=== PATIENT | male | born 1945 | race African-American/Black ===

== ENCOUNTER 2017-01-24 10:30 | Emergency (ER) | payer OTHER ==
[~2017-01-24] VITALS: Ht 185.4 cm; Wt 104.0 kg
[~2017-01-24 10:30] MED LIST: DIPHENHYDRAMINE50 MG PO; HALDOL DEC50 MG/1 ML IM; HALOPERIDOL5 MG PO; ZESTRIL,PRINIVI20 MG PO; ZOCOR20 MG PO
[2017-01-24 11:31] LABS: EOSINOPHIL (%) 0.3 % (0-5); HEMATOCRIT 32.1 % (38.0-50.0); IMMATURE GRANULOCYTE (%) 0.3 % (0.0-0.7); INSTRUMENT ABS NEUTROPHIL CT 4.8 K/uL; LYMPHOCYTE COUNT 1.3 K/uL (1.0-2.8); MCH 29.2 PG (29.0-34.0); MCV 88.4 FL (86-99); MONOCYTE (%) 13.9 % (3-12); NEUTROPHIL (%) 67.7 % (45-76); NEUTROPHIL COUNT 4.8 K/uL (1.8-6.4); PLATELET COUNT 233 K/uL (156-360); RBC DIS.WIDTH-CV 13.2 % (11.8-14.6); RBC DIS.WIDTH-SD 42.9 % (39-53); RED BLOOD COUNT 3.63 M/uL (4.00-5.50); WHITE BLOOD COUNT 7.1 K/uL (4.1-10.2)
[2017-01-24 11:36] LABS: INTER. NORMALIZED RATIO 1.3
[2017-01-24 11:39] LABS: PTT 26.4 SEC (25-37)
[2017-01-24 11:43] LABS: CHLORIDE 102 mEq/L (99-109); POTASSIUM 4.4 mEq/L (3.7-5.4); SODIUM 131 mEq/L (136-147)
[2017-01-24 11:45] LABS: GLUCOSE 111 mg/dL (70-99)
[2017-01-24 11:46] LABS: ANION GAP 8 MEQ/L (2-14)
[2017-01-24 11:47] LABS: TOTAL BILIRUBIN 0.9 mg/dL (0.0-1.0)
[2017-01-24 11:48] LABS: ALKALINE PHOSPHATASE 75 IU/L (3-129)
[2017-01-24 11:49] LABS: GFR ESTIMATE (CALCULATED) 41 mL/min/
[2017-01-24 11:50] LABS: DIRECT BILIRUBIN 0.4 mg/dL (0.0-0.3); UREA NITROGEN (BUN) 30 mg/dL (9-23)
[2017-01-24 11:51] LABS: TROP-I INTERPRETATION NEGATIVE; TROPONIN-I 0.02 ng/mL (0.0-0.30)
[2017-01-24 11:52] LABS: LIPASE 13 U/L (1.0-51.0)
[2017-01-24 13:20] LABS: ADD MIUA? YES; BILIRUBIN NEGATIVE; BLOOD SMALL; COLOR YELLOW ((YELLOW)); GLUCOSE (STRIP) NEGATIVE; KETONES NEGATIVE; LEUKOCYTES LARGE; NITRITE NEGATIVE; PROTEIN (STRIP) 30; UROBILINOGEN 0.2 MG/DL (0.2-1.0)
[2017-01-24 13:55] LABS: BACTERIA RARE /HPF; EPITHELIAL CELLS NONE SEEN /HPF; HYALINE CASTS 0-5 /LPF; MUCUS NONE SEEN /LPF; RED BLOOD CELLS 0-5 /HPF (0-5); UCUL ADDED? YES; WHITE BLOOD CELLS TNTC /HPF (0-5); WHITE BLOOD CELLS CLUMP FEW /HPF (0-5)
[2017-01-24] MEDS ORDERED: BACTRIM,SEPT1 TABLET PO (17:16)
[2017-01-24 17:55] VITALS: BP 139/102
== END 2017-01-24 17:57 ==
LOC: EME 10:30
PROVIDERS: Emergency Medicine
DX: N39.0 Urinary tract infection, site not specified (principal); N28.9 Disorder of kidney and ureter, unspecified; I10 Essential (primary) hypertension; F20.9 Schizophrenia, unspecified; Z88.0 Allergy status to penicillin; Z87.891 Personal history of nicotine dependence
CPT/HCPCS: 71010; 74176; 80048; 80076; 81003; 83605; 83690; 83880; 84484; 85025; 85610; 85730; 87086; 99281; 99285; J0696; J7030; J7050

== ENCOUNTER 2017-08-16 11:44 | Emergency (ER) | payer OTHER ==
[~2017-08-16] VITALS: Ht 190.5 cm; Wt 103.6 kg
[~2017-08-16 11:44] MED LIST changes: +BACTRIM,SEPT1 TABLET PO
[2017-08-16 11:56] LABS: BASOPHIL (%) 0.1 % (0-1); EOSINOPHIL (%) 0.2 % (0-5); HEMATOCRIT 33.1 % (38.0-50.0); HEMOGLOBIN 11.1 G/DL (12.5-16.6); IMMATURE GRANULOCYTE (%) 3.5 % (0.0-0.7); LYMPHOCYTE (%) 6.6 % (15-42); LYMPHOCYTE COUNT 1.1 K/uL (1.0-2.8); MCH 29.8 PG (29.0-34.0); MCHC 33.5 G/DL (30.0-36.0); MCV 88.7 FL (86-99); MONOCYTE (%) 6.6 % (3-12); MONOCYTE COUNT 1.1 K/uL (0-0.8); NEUTROPHIL COUNT 14.2 K/uL (1.8-6.4); PLATELET COUNT 144 K/uL (156-360); RBC DIS.WIDTH-CV 13.2 % (11.8-14.6); RBC DIS.WIDTH-SD 43.3 % (39-53); RED BLOOD COUNT 3.73 M/uL (4.00-5.50); WHITE BLOOD COUNT 17.1 K/uL (4.1-10.2)
[2017-08-16 12:01] LABS: INTER. NORMALIZED RATIO 1.2
[2017-08-16 12:04] LABS: PTT 24.9 SEC (25-37)
[2017-08-16 12:08] LABS: AMYLASE 38 IU/L (1-118); CHLORIDE 104 mEq/L (99-109); SODIUM 134 mEq/L (136-147)
[2017-08-16 12:10] LABS: GLUCOSE 136 mg/dL (70-99)
[2017-08-16 12:13] LABS: SERUM ETHYL ALCOHOL < 10 mg/dL
[2017-08-16 12:14] LABS: CREATININE 2.9 mg/dL (0.6-1.3); GFR ESTIMATE (CALCULATED) 28 mL/min/ (58.99-99999)
[2017-08-16 12:15] LABS: UREA NITROGEN (BUN) 49 mg/dL (9-23)
[2017-08-16 12:17] LABS: LIPASE 10 U/L (1.0-51.0); TROP-I INTERPRETATION NEGATIVE; TROPONIN-I 0.03 ng/mL (0.0-0.30)
[2017-08-16] MEDS ORDERED: COGENTIN1 MG PO (16:44)
[2017-08-16] MEDS ORDERED: ATENOLOL25 MG PO (16:44)
[2017-08-16] MEDS ORDERED: ASPIR 8181 M1 PO (16:45)
[2017-08-16] MEDS ORDERED: LASIX40 MG PO (16:45)
[2017-08-16] MEDS ORDERED: COZAAR50 MG PO (16:45)
[2017-08-16] MEDS ORDERED: ALDACTONE25 MG PO (16:46)
[2017-08-16] MEDS ORDERED: HYTRIN1 MG PO (16:46)
[2017-08-16 18:08] VITALS: BP 112/76
== END 2017-08-16 18:38 | disposition short-term general hospital (02) ==
LOC: EME 11:44
PROVIDERS: Emergency Medicine
DX: A41.9 Sepsis, unspecified organism (principal); L03.116 Cellulitis of left lower limb; E86.0 Dehydration; I13.0 Hypertensive heart and chronic kidney disease with heart failure and stage 1 through stage 4 chronic kidney disease, or unspecified chronic kidney disease; I50.9 Heart failure, unspecified; N18.9 Chronic kidney disease, unspecified; R60.0 Localized edema; Z88.0 Allergy status to penicillin; Z87.891 Personal history of nicotine dependence
CPT/HCPCS: 70450; 80047; 80048; 81003; 82150; 83605; 83690; 84484; 85025; 85610; 85730; 86850; 86900; 86901; 87040; 93005; 93971; 99281; 99285; G0480; J0692; J3370

== ENCOUNTER 2017-10-17 07:08 | Inpatient (IN) | payer OTHER ==
[~2017-10-17] VITALS: Ht 185.4 cm; Wt 99.3 kg
[~2017-10-17 07:08] MED LIST changes: +ALDACTONE25 MG PO; +ASPIR 8181 M1 PO; +ATENOLOL25 MG PO; +COGENTIN1 MG PO; +COZAAR50 MG PO; +HYTRIN1 MG PO; +LASIX40 MG PO
[2017-10-17 07:59] LABS: HEMATOCRIT 30.1 % (38.0-50.0); HEMOGLOBIN 9.8 G/DL (12.5-16.6); MCH 29.3 PG (29.0-34.0); MCHC 32.6 G/DL (30.0-36.0); MCV 90.1 FL (86-99); PLATELET COUNT 272 K/uL (156-360); RBC DIS.WIDTH-CV 14.2 % (11.8-14.6); RBC DIS.WIDTH-SD 46.7 % (39-53); RED BLOOD COUNT 3.34 M/uL (4.00-5.50)
[2017-10-17 08:30] LABS: CHLORIDE 103 MEQ/L (99-109); CREATININE 1.7 MG/DL (0.6-1.3); GFR ESTIMATE (CALCULATED) 52 mL/min/ (58.99-99999); GLUCOSE 81 mg/dL (70-99); POTASSIUM 5.1 MEQ/L (3.7-5.4); SODIUM 132 MEQ/L (136-147); UREA NITROGEN (BUN) 40 mg/dL (9-23)
[2017-10-17 08:37] LABS: TROP-I INTERPRETATION NEGATIVE; TROPONIN-I < 0.01 ng/mL (0.0-0.30)
[2017-10-17 11:02] VITALS: BP 135/89
[2017-10-17 12:37] VITALS: BP 110/79
[2017-10-17] MEDS ORDERED: HALDOL2 MG PO ×2 (13:30)
[2017-10-17] MEDS ORDERED: ZANTAC150 MG PO (13:30)
[2017-10-17] MEDS ORDERED: TENORMIN50 MG PO (13:31)
[2017-10-17] MEDS ORDERED: ERGOCALCIF50000 UNIT PO (13:32)
[2017-10-17] MEDS ORDERED: LOTRIMIN AF24 GM TP (13:32)
[2017-10-17] MEDS ORDERED: FLOMAX0.4 MG PO (13:33)
[2017-10-17] MEDS ORDERED: TYLENOL REGULA325 MG PO (13:33)
[2017-10-17] MEDS ORDERED: SENNA8.6 MG PO (13:33)
[2017-10-17] MEDS ORDERED: CETAPHIL1 EACH TP (13:34)
[2017-10-17 14:28] LABS: HEMATOCRIT 31.9 % (38.0-50.0); HEMOGLOBIN 10.2 G/DL (12.5-16.6); MCH 28.5 PG (29.0-34.0); MCV 89.1 FL (86-99); PLATELET COUNT 262 K/uL (156-360); RBC DIS.WIDTH-CV 14.3 % (11.8-14.6); RBC DIS.WIDTH-SD 46.3 % (39-53); RED BLOOD COUNT 3.58 M/uL (4.00-5.50); WHITE BLOOD COUNT 3.2 K/uL (4.1-10.2)
[2017-10-17 14:38] LABS: INTER. NORMALIZED RATIO 1.2
[2017-10-17 14:40] LABS: PTT 25.1 SEC (25-37)
[2017-10-17 14:55] LABS: TROP-I INTERPRETATION NEGATIVE; TROPONIN-I < 0.01 ng/mL (0.0-0.30)
[2017-10-17 15:25] VITALS: BP 124/95
[2017-10-17 19:07] VITALS: BP 109/74
[2017-10-17 23:35] VITALS: BP 113/80
[2017-10-18 03:25] VITALS: BP 97/70
[2017-10-18 07:46] VITALS: BP 123/74
[2017-10-18 09:10] LABS: HEMATOCRIT 26.7 % (38.0-50.0); HEMOGLOBIN 8.4 G/DL (12.5-16.6); MCH 28.6 PG (29.0-34.0); MCHC 31.5 G/DL (30.0-36.0); MCV 90.8 FL (86-99); PLATELET COUNT 287 K/uL (156-360); RBC DIS.WIDTH-CV 14.5 % (11.8-14.6); RBC DIS.WIDTH-SD 47.9 % (39-53); RED BLOOD COUNT 2.94 M/uL (4.00-5.50)
[2017-10-18 09:42] LABS: CHLORIDE 110 MEQ/L (99-109); CREATININE 1.6 MG/DL (0.6-1.3); GFR ESTIMATE (CALCULATED) 55 mL/min/ (58.99-99999); POTASSIUM 5.6 MEQ/L (3.7-5.4); SODIUM 136 MEQ/L (136-147); UREA NITROGEN (BUN) 33 mg/dL (9-23)
[2017-10-18 09:43] LABS: GLUCOSE 112 mg/dL (70-99)
[2017-10-18] MEDS ORDERED: PANTOPRAZOLE SO40 MG PO (11:05)
[2017-10-18] MEDS ORDERED: ALDACTONE25 MG PO (11:06)
[2017-10-18 16:03] VITALS: BP 130/89
[2017-10-18 19:54] VITALS: BP 122/84
[2017-10-18 23:16] VITALS: BP 131/87
[2017-10-19 07:15] VITALS: BP 132/86
[2017-10-19 09:05] LABS: HEMATOCRIT 27.8 % (38.0-50.0); HEMOGLOBIN 8.8 G/DL (12.5-16.6); MCH 28.7 PG (29.0-34.0); MCHC 31.7 G/DL (30.0-36.0); MCV 90.6 FL (86-99); PLATELET COUNT 275 K/uL (156-360); RBC DIS.WIDTH-CV 14.5 % (11.8-14.6); RBC DIS.WIDTH-SD 47.2 % (39-53); RED BLOOD COUNT 3.07 M/uL (4.00-5.50); WHITE BLOOD COUNT 4.3 K/uL (4.1-10.2)
[2017-10-19 09:28] LABS: CHLORIDE 109 MEQ/L (99-109); CREATININE 1.4 MG/DL (0.6-1.3); GFR ESTIMATE (CALCULATED) > 59 mL/min/ (58.99-99999); GLUCOSE 103 mg/dL (70-99); POTASSIUM 4.6 MEQ/L (3.7-5.4); SODIUM 137 MEQ/L (136-147); UREA NITROGEN (BUN) 32 mg/dL (9-23)
== END 2017-10-19 11:16 | DRG 379 ==
LOC: EME 07:08 → EDOF 09:20 → 5SOUTH 09:20 → EDOF 09:20 → CANRESERV 09:24 → ENRESERV 09:24 → EDOF 09:51 → 5SOUTH 10:17
PROVIDERS: Emergency Medicine; Hospitalist; Internal Medicine; Physician Assistant
PROC: 0DJ08ZZ Inspection of Upper Intestinal Tract, Via Natural or Artificial Opening Endoscopic (ICD-10-PCS; principal; 2017-10-17)
DX: K92.2 Gastrointestinal hemorrhage, unspecified (principal); F20.9 Schizophrenia, unspecified; I95.9 Hypotension, unspecified; D64.9 Anemia, unspecified; E87.5 Hyperkalemia; I12.9 Hypertensive chronic kidney disease with stage 1 through stage 4 chronic kidney disease, or unspecified chronic kidney disease; N18.3 Chronic kidney disease, stage 3 (moderate); E78.5 Hyperlipidemia, unspecified; K44.9 Diaphragmatic hernia without obstruction or gangrene; K29.60 Other gastritis without bleeding; Z87.891 Personal history of nicotine dependence
CPT/HCPCS: 71045; 80048; 82948; 84132 91; 84484; 85027; 85610; 85730; 86850; 86900; 86901; 93005; 99281; 99285; C9113; G0378; J2405; J3010; J7030; S0028